=== PATIENT | female | born 1945 | race Caucasian/White ===

== ENCOUNTER 2024-01-01 15:47 | Inpatient (IN) | payer OTHER ==
[~2024-01-01] VITALS: Ht 149.9 cm; Wt 65.3 kg
[2024-01-01] VITALS (9 sets, daily range): BP systolic 115; BP diastolic 81; TEMP 99; O2SAT 98–100
[2024-01-01 16:40] LABS: BASOPHILS # (AUTO) 0.1 K/uL (0.0-0.2); BASOPHILS % (AUTO) 0.7 % (0.0-2.0); EOSINOPHILS # (AUTO) 0.2 K/uL (0.0-0.7); EOSINOPHILS % (AUTO) 2.2 % (0.0-6.0); HEMATOCRIT 34 % (33-45); HEMOGLOBIN 10.3 g/dL (11.5-14.8); LYMPHOCYTES # (AUTO) 0.9 K/uL (0.8-4.8); MEAN CORPUSCULAR HEMOGLOBIN 22 PG (26.0-33.0); MEAN CORPUSCULAR HGB CONC 30 g/dl (31.0-36.0); MEAN CORPUSCULAR VOLUME 73 fL (82-100); NEUTROPHILS # (AUTO) 7.1 K/uL (1.8-8.9); NEUTROPHILS % (AUTO) 76.6 % (43.0-81.0); PLATELET COUNT (AUTO) 403 K/uL (150-450); RED BLOOD CELL COUNT(AUTO) 4.67 MIL/uL (4.0-5.2); RED CELL DISTRIBUTION WIDTH 17.2 % (11.5-15.0); WHITE BLOOD COUNT (AUTO) 9.3 K/uL (4.3-11.0)
[2024-01-01 16:45] LABS: LYMPHOCYTES % (AUTO) 12.1 % (20.0-44.0); MONOCYTES % (AUTO) 8.4 % (2.0-12.0)
[2024-01-01 17:11] LABS: CALCIUM, SERUM 9.1 mg/dL (8.5-10.1); CARBON DIOXIDE 33 mmol/L (21-32); CHLORIDE 94 mmol/L (98-107); CREATININE 1.1 mg/dL (0.6-1.3); GLUCOSE 124 mg/dL (74-106); NT-PRO BNP 603 pg/mL (0-125); POTASSIUM 4.5 mmol/L (3.5-5.1); SODIUM SERUM 131 mmol/L (136-145); UREA NITROGEN, BLOOD 14 mg/dL (7-18)
[2024-01-01] MEDS ORDERED: methylPREDNISolone SOD SUCC 125 MG/2ML VIAL ONE (17:12)
[2024-01-01] MEDS ORDERED: IPRATROPIUM NEB FS 0.5 MG/2.5 ML AMPUL.NEB ONE (17:23)
[2024-01-01] MEDS ORDERED: ALBUTEROL FS 2.5 MG/3 ML VIAL.NEB ONE ×2 (17:23→20:16)
[2024-01-01] MEDS: ALBUTEROL FS 2.5 MG/3 ML VIAL.NEB NEB ONE ×2 (17:28→20:12)
[2024-01-01] MEDS: IPRATROPIUM NEB FS 0.5 MG/2.5 ML AMPUL.NEB NEB ONE (17:28)
[2024-01-01] MEDS: methylPREDNISolone SOD SUCC 125 MG/2ML VIAL IV ONE (17:29)
[2024-01-01] MEDS ORDERED: FLUT1BLS6 IH (17:46)
[2024-01-01] MEDS ORDERED: BRIM5DRO3 EACHEYE (17:46)
[2024-01-01] MEDS ORDERED: CYCL30DR EACHEYE (17:46)
[2024-01-01] MEDS ORDERED: CHOL100062 PO (17:46)
[2024-01-01] MEDS ORDERED: GLUC10007 MM (17:46)
[2024-01-01] MEDS ORDERED: OM-31CAP4 PO (17:46)
[2024-01-01] MEDS ORDERED: FURO40TA5 PO (17:46)
[2024-01-01] MEDS ORDERED: ESTR-8 PO (17:46)
[2024-01-01] MEDS ORDERED: GING550C5 PO (17:46)
[2024-01-01] MEDS ORDERED: TURM500C9 PO (17:46)
[2024-01-01] MEDS ORDERED: ASCO100058 PO (17:46)
[2024-01-01] MEDS ORDERED: ASPI-1169 PO (17:46)
[2024-01-01] MEDS ORDERED: OMEP40CA21 PO (17:46)
[2024-01-01] MEDS ORDERED: TRAM50TA2 PO (17:46)
[2024-01-01] MEDS ORDERED: POTA10CA43 PO (17:46)
[2024-01-01] MEDS ORDERED: CALC-1026 PO (17:46)
[2024-01-01] MEDS ORDERED: ATEN50TA PO (17:46)
[2024-01-01] MEDS ORDERED: LEVA15HF6 IH (17:46)
[2024-01-01] MEDS ORDERED: CHLO473M2 MM (17:46)
[2024-01-02] VITALS (24 sets, daily range): BP systolic 90–156; BP diastolic 53–77; TEMP 97.3–98.4; O2SAT 93–100
[2024-01-02] MEDS: ACETAMINOPHEN ES 500 MG TABLET PO PRN (00:31)
[2024-01-02] MEDS: ALBUTEROL FS 2.5 MG/3 ML VIAL.NEB NEB PRN (00:43)
[2024-01-02] MEDS: ONDANSETRON HCL/PF 4 MG/2 ML VIAL IV PRN (04:14)
[2024-01-02 07:02] LABS: BASOPHILS % (AUTO) 0.1 % (0.0-2.0); HEMATOCRIT 35 % (33-45); HEMOGLOBIN 10.6 g/dL (11.5-14.8); LYMPHOCYTES # (AUTO) 0.8 K/uL (0.8-4.8); LYMPHOCYTES % (AUTO) 10.7 % (20.0-44.0); MEAN CORPUSCULAR HEMOGLOBIN 23 PG (26.0-33.0); MEAN CORPUSCULAR HGB CONC 31 g/dl (31.0-36.0); MEAN CORPUSCULAR VOLUME 74 fL (82-100); MONOCYTES # (AUTO) 0.2 K/uL (0.1-1.30); MONOCYTES % (AUTO) 2.3 % (2.0-12.0); NEUTROPHILS # (AUTO) 6.7 K/uL (1.8-8.9); NEUTROPHILS % (AUTO) 86.9 % (43.0-81.0); PLATELET COUNT (AUTO) 441 K/uL (150-450); RED BLOOD CELL COUNT(AUTO) 4.68 MIL/uL (4.0-5.2); WHITE BLOOD COUNT (AUTO) 7.7 K/uL (4.3-11.0)
[2024-01-02 07:26] LABS: CALCIUM, SERUM 9.8 mg/dL (8.5-10.1); CARBON DIOXIDE 32 mmol/L (21-32); CHLORIDE 92 mmol/L (98-107); CREATININE 1.4 mg/dL (0.6-1.3); GLUCOSE 198 mg/dL (74-106); POTASSIUM 3.9 mmol/L (3.5-5.1); SODIUM SERUM 133 mmol/L (136-145); UREA NITROGEN, BLOOD 20 mg/dL (7-18)
[2024-01-02] MEDS: methylPREDNISolone SOD SUCC 40 MG/ML VIAL IV SCH ×2 (08:39→09:30)
[2024-01-02] MEDS: GUAIFENESIN 300 MG/15 ML UDC PO PRN (08:39)
[2024-01-02] MEDS: ENOXAPARIN SODIUM 40 MG/0.4 ML DISP.SYRIN SQ SCH (08:43)
[2024-01-02] MEDS: HYDROCODONE/APAP 5/325MG TABLET PO PRN (08:51)
[2024-01-02] MEDS ORDERED: TRAMADOL HCL 50 MG TABLET PO PRN (09:30)
[2024-01-02] MEDS: ALBUTEROL FS 2.5 MG/3 ML VIAL.NEB NEB SCH (10:00)
[2024-01-02] MEDS: PANTOPRAZOLE 40 MG TABLET.DR PO SCH (10:11)
[2024-01-02] MEDS: AZITHROMYCIN 500 MG in IV D5W 250 ML IV SCH (10:11)
[2024-01-02] MEDS: TRAMADOL HCL 50 MG TABLET PO PRN (10:11)
[2024-01-02] MEDS: CHOLECALCIFEROL 1,000 UNIT TABLET (VIT D3) PO SCH (10:11)
[2024-01-02] MEDS: IPRATROPIUM NEB FS 0.5 MG/2.5 ML AMPUL.NEB NEB SCH (11:54)
[2024-01-02] MEDS: BRIMONIDINE TARTRATE OPHT SOLN 5 ML BOTTLE EACHEYE SCH (17:11)
[2024-01-03] VITALS (19 sets, daily range): BP systolic 112–152; BP diastolic 53–83; TEMP 97.7–98.4; O2SAT 95–100
[2024-01-03 05:59] LABS: ABG BASE EXCESS 5.1 mmol/L; ABG OXYGEN SATURATION 98.1 % (92.0-98.5); ABG PCO2 49.9 mmHg (35.0-45.0); ABG PH 7.407 (7.350-7.450); ABG PO2 111.2 mmHg (75.0-100.0); ABG TOTAL HEMOGLOBIN 11.6 G/dL (12.0-16.0); COHb 0.1 % (0.5-1.5); MetHb 0.4 % (0.0-1.5); O2Hb 97.6 % (94.0-97.0); SITE, ABG Right Radial; VENT MODE, BG 3L O2 NC
[2024-01-03 07:04] LABS: CALCIUM, SERUM 9.1 mg/dL (8.5-10.1); CHLORIDE 96 mmol/L (98-107); CREATININE 1.2 mg/dL (0.6-1.3); GLUCOSE 140 mg/dL (74-106); POTASSIUM 4.5 mmol/L (3.5-5.1); SODIUM SERUM 132 mmol/L (136-145); UREA NITROGEN, BLOOD 21 mg/dL (7-18)
[2024-01-03 07:16] LABS: CARBON DIOXIDE 27 mmol/L (21-32)
[2024-01-03 08:38] LABS: BASOPHILS # (AUTO) 0.1 K/uL (0.0-0.2); BASOPHILS % (AUTO) 0.5 % (0.0-2.0); HEMATOCRIT 33 % (33-45); HEMOGLOBIN 9.7 g/dL (11.5-14.8); LYMPHOCYTES # (AUTO) 0.5 K/uL (0.8-4.8); LYMPHOCYTES % (AUTO) 3.5 % (20.0-44.0); MEAN CORPUSCULAR HEMOGLOBIN 22 PG (26.0-33.0); MEAN CORPUSCULAR HGB CONC 29 g/dl (31.0-36.0); MEAN CORPUSCULAR VOLUME 74 fL (82-100); MONOCYTES # (AUTO) 0.9 K/uL (0.1-1.30); MONOCYTES % (AUTO) 5.9 % (2.0-12.0); NEUTROPHILS % (AUTO) 90.1 % (43.0-81.0); PLATELET COUNT (AUTO) 425 K/uL (150-450); RED BLOOD CELL COUNT(AUTO) 4.45 MIL/uL (4.0-5.2); RED CELL DISTRIBUTION WIDTH 17.6 % (11.5-15.0); WHITE BLOOD COUNT (AUTO) 15.5 K/uL (4.3-11.0)
[2024-01-03] MEDS ORDERED: CASEI PO SCH (09:00)
[2024-01-03] MEDS ORDERED: [UNRECOGNIZED DRUG - OTHER] PO SCH (09:00)
[2024-01-03] MEDS ORDERED: DHA PO SCH (09:00)
[2024-01-03] MEDS ORDERED: FISH OIL PO SCH (09:00)
[2024-01-03] MEDS ORDERED: [UNRECOGNIZED DRUG - OTHER] PO SCH (09:00)
[2024-01-03] MEDS ORDERED: EPA PO SCH (09:00)
[2024-01-03] MEDS: ASPIRIN 81 MG TAB.CHEW PO SCH (09:25)
[2024-01-03] MEDS: ATENOLOL 50 MG TABLET PO SCH (09:25)
[2024-01-03] MEDS: CALCIUM CARBONATE (1250) 500 MG TABLET PO SCH (09:25)
[2024-01-03] MEDS: POLYVINYL ALCOHOL 15 ML BOTTLE EACHEYE SCH (16:23)
[2024-01-03] MEDS ORDERED: GUAIFENESIN LA 600 MG TABLET.SA PO PRN (22:30)
[2024-01-04] VITALS (19 sets, daily range): BP systolic 114–146; BP diastolic 53–83; TEMP 97.5–98.2; O2SAT 93–100
[2024-01-04] MEDS: GUAIFENESIN LA 600 MG TABLET.SA PO PRN (01:06)
[2024-01-04 06:55] LABS: CALCIUM, SERUM 9.5 mg/dL (8.5-10.1); MAGNESIUM 2.6 mg/dL (1.8-2.4); POTASSIUM 4.5 mmol/L (3.5-5.1)
[2024-01-04 07:12] LABS: BASOPHILS % (AUTO) 0.3 % (0.0-2.0); EOSINOPHILS # (AUTO) 0.1 K/uL (0.0-0.7); EOSINOPHILS % (AUTO) 0.5 % (0.0-6.0); HEMATOCRIT 36 % (33-45); HEMOGLOBIN 10.8 g/dL (11.5-14.8); LYMPHOCYTES # (AUTO) 0.7 K/uL (0.8-4.8); LYMPHOCYTES % (AUTO) 5.1 % (20.0-44.0); MEAN CORPUSCULAR HEMOGLOBIN 23 PG (26.0-33.0); MEAN CORPUSCULAR HGB CONC 30 g/dl (31.0-36.0); MEAN CORPUSCULAR VOLUME 75 fL (82-100); MONOCYTES # (AUTO) 0.2 K/uL (0.1-1.30); MONOCYTES % (AUTO) 1.7 % (2.0-12.0); NEUTROPHILS # (AUTO) 13.1 K/uL (1.8-8.9); NEUTROPHILS % (AUTO) 92.4 % (43.0-81.0); PLATELET COUNT (AUTO) 438 K/uL (150-450); RED BLOOD CELL COUNT(AUTO) 4.76 MIL/uL (4.0-5.2); RED CELL DISTRIBUTION WIDTH 17.6 % (11.5-15.0); WHITE BLOOD COUNT (AUTO) 14.2 K/uL (4.3-11.0)
[2024-01-04] MEDS: DILTIAZEM HCL CD 240 MG PO SCH (08:36)
[2024-01-04] MEDS: ACETYLCYSTEINE 10% SOLN 400 MG/4 ML VIAL NEB SCH (11:05)
[2024-01-04] MEDS ORDERED: methylPREDNISolone SOD SUCC 40 MG/ML VIAL IV SCH (13:00)
[2024-01-04] MEDS: methylPREDNISolone SOD SUCC 40 MG/ML VIAL IV SCH (16:52)
[2024-01-05] VITALS (20 sets, daily range): BP systolic 117–153; BP diastolic 45–63; TEMP 97.5–98.2; O2SAT 94–100
[2024-01-05 07:09] LABS: CALCIUM, SERUM 9.8 mg/dL (8.5-10.1); POTASSIUM 4.7 mmol/L (3.5-5.1)
[2024-01-05] MEDS: DILTIAZEM HCL CD 120 MG PO SCH (08:20)
[2024-01-06] VITALS (18 sets, daily range): BP systolic 138–161; BP diastolic 49–65; TEMP 97.8–98.8; O2SAT 95–100
[2024-01-06] MEDS: FERROUS SULFATE (325 MG) 325 MG/TAB TABLET PO SCH (08:49)
[2024-01-06] MEDS ORDERED: methylPREDNISolone SOD SUCC 40 MG/ML VIAL IV SCH (10:00)
[2024-01-07] VITALS (13 sets, daily range): BP systolic 142–156; BP diastolic 53–69; TEMP 97.7–98.4; O2SAT 98–100
[2024-01-07 06:44] LABS: BASOPHILS % (AUTO) 0.1 % (0.0-2.0); HEMATOCRIT 35 % (33-45); HEMOGLOBIN 10.4 g/dL (11.5-14.8); LYMPHOCYTES # (AUTO) 0.8 K/uL (0.8-4.8); LYMPHOCYTES % (AUTO) 4.8 % (20.0-44.0); MEAN CORPUSCULAR HEMOGLOBIN 22 PG (26.0-33.0); MEAN CORPUSCULAR HGB CONC 30 g/dl (31.0-36.0); MEAN CORPUSCULAR VOLUME 74 fL (82-100); MONOCYTES # (AUTO) 1.3 K/uL (0.1-1.30); MONOCYTES % (AUTO) 8.2 % (2.0-12.0); NEUTROPHILS # (AUTO) 13.7 K/uL (1.8-8.9); NEUTROPHILS % (AUTO) 86.9 % (43.0-81.0); PLATELET COUNT (AUTO) 461 K/uL (150-450); RED CELL DISTRIBUTION WIDTH 17.6 % (11.5-15.0); WHITE BLOOD COUNT (AUTO) 15.8 K/uL (4.3-11.0)
[2024-01-07 07:01] LABS: CALCIUM, SERUM 9.2 mg/dL (8.5-10.1); POTASSIUM 4.7 mmol/L (3.5-5.1)
[2024-01-07] MEDS: methylPREDNISolone SOD SUCC 40 MG/ML VIAL IV SCH (09:10)
[2024-01-07] MEDS ORDERED: FERR325T28 PO (09:13)
[2024-01-07] MEDS ORDERED: ALBUT2 NEB (09:13)
[2024-01-07] MEDS ORDERED: DILT120C87 PO (09:13)
[2024-01-07] MEDS ORDERED: IPRA0.2S9 NEB (09:13)
[2024-01-07] MEDS ORDERED: PRED20TA PO (09:13)
== END 2024-01-07 15:55 | DRG 682 ==
LOC: EDBD 15:54 → ER 15:54 → TELE 19:52 → MED 01-07 14:43
PROVIDERS: ADMIT Internal Medicine; ATTEND Internal Medicine
DX: N17.9 Acute kidney failure, unspecified (principal); J96.01 Acute respiratory failure with hypoxia; J44.1 Chronic obstructive pulmonary disease with (acute) exacerbation; Z99.81 Dependence on supplemental oxygen; J43.9 Emphysema, unspecified; Z79.51 Long term (current) use of inhaled steroids; Z79.899 Other long term (current) drug therapy; Z79.82 Long term (current) use of aspirin; D50.9 Iron deficiency anemia, unspecified; I10 Essential (primary) hypertension; Z87.891 Personal history of nicotine dependence
CPT/HCPCS: 36415; 36600; 70220-TC; 71045-TC; 80048-TC; 82803-TC; 83540-TC; 83735-TC; 83880; 84484-TC; 85025-TC; 94760-TC; 94761-TC; 94799-TC; 97110-TC; 97116-TC; 97530-TC; A4223; G0378; J0456; J1650; J2405; J2919; J7040; J7060